=== PATIENT | female | born 1970 | race Caucasian/White ===

== ENCOUNTER 2017-01-01 06:40 | Day surgery (SDC) | payer OTHER ==
[~2017-01-01] VITALS: Ht 162.6 cm; Wt 68.0 kg
[~2017-01-01 06:40] MED LIST: SYNTHROID50 MCG PO
[2017-01-01 07:44] VITALS: BP 156/94
[2017-01-01 11:00] VITALS: BP 136/84
[2017-01-01 11:35] VITALS: BP 150/90
== END 2017-01-01 11:50 | disposition home or self-care (01) ==
LOC: SDC 06:40
PROC: 0UDB8ZX Extraction of Endometrium, Via Natural or Artificial Opening Endoscopic, Diagnostic (ICD-10-PCS; principal; 2017-01-01)
PROC: 0U5B8ZZ Destruction of Endometrium, Via Natural or Artificial Opening Endoscopic (ICD-10-PCS; 2017-01-01)
DX: N92.4 Excessive bleeding in the premenopausal period (principal); I10 Essential (primary) hypertension; E03.9 Hypothyroidism, unspecified
CPT/HCPCS: 88305; J0131; J1885; J2250; J2765; J3010

== ENCOUNTER 2017-01-10 09:00 | Emergency (ER) | payer OTHER ==
[~2017-01-10] VITALS: Ht 162.6 cm; Wt 68.7 kg
[2017-01-10 09:42] LABS: HEMATOCRIT 44.4 % (36.0-46.0); MCH 31.5 PG (29.0-34.0); MCHC 34.2 G/DL (30.0-36.0); MCV 92.1 FL (83-99); PLATELET COUNT 263 K/uL (156-360); RBC DIS.WIDTH-CV 12.2 % (11.8-14.6); RBC DIS.WIDTH-SD 41.4 % (39-53); RED BLOOD COUNT 4.82 M/uL (3.80-5.20); WHITE BLOOD COUNT 4.9 K/uL (4.1-10.2)
[2017-01-10 09:52] LABS: CHLORIDE 106 mEq/L (99-109); POTASSIUM 4.2 mEq/L (3.7-5.4); SODIUM 141 mEq/L (136-147)
[2017-01-10 09:54] LABS: GLUCOSE 112 mg/dL (70-99)
[2017-01-10 09:55] LABS: ANION GAP 10 MEQ/L (2-14)
[2017-01-10 09:58] LABS: GFR ESTIMATE (CALCULATED) > 59 mL/min/
[2017-01-10 09:59] LABS: UREA NITROGEN (BUN) 16 mg/dL (9-23)
[2017-01-10 10:04] LABS: TROP-I INTERPRETATION NEGATIVE; TROPONIN-I < 0.01 ng/mL (0.0-0.30)
[2017-01-10 12:18] LABS: TROP-I INTERPRETATION NEGATIVE; TROPONIN-I < 0.01 ng/mL (0.0-0.30)
[2017-01-10] MEDS ORDERED: MOTRIN800 MG PO (12:41)
[2017-01-10 13:22] VITALS: BP 186/116
== END 2017-01-10 13:23 | disposition home or self-care (01) ==
LOC: EME 09:00
PROVIDERS: Emergency Medicine
DX: R07.89 Other chest pain (principal); J45.909 Unspecified asthma, uncomplicated
CPT/HCPCS: 71020; 80048; 84484; 85027; 93005; 99281; 99284